=== PATIENT | female | born 1955 | race Caucasian/White ===

== ENCOUNTER 2017-12-08 19:16 | Emergency (ER) | payer MEDICAID, BC ==
[2017-12-08] MEDS: oxyCODONE/ACETAMINOPHEN 5 MG/325 MG TAB PO (20:03)
== END 2017-12-08 21:17 | disposition home or self-care (01) ==
LOC: PHED 19:16
DX: L40.9 Psoriasis, unspecified (principal); M79.672 Pain in left foot; M79.671 Pain in right foot; M19.90 Unspecified osteoarthritis, unspecified site; F41.9 Anxiety disorder, unspecified; F32.9 Major depressive disorder, single episode, unspecified; Z79.899 Other long term (current) drug therapy; Z88.5 Allergy status to narcotic agent
CPT/HCPCS: 99283